=== PATIENT | male | born 2000 | race Caucasian/White ===

== ENCOUNTER 2021-12-31 17:47 | Emergency (ER) | payer OTHER, SELFPAY ==
[2021-12-31 17:57] VITALS: BP 155/74; PULSE 100; RESP 18; TEMP 37.2; O2SAT 100
--- NOTE | 2021-12-31 18:18 | ED.MALEGU ---
HPI - Male Genitourinary General Chief complaint: Urogenital-Male Stated complaint: STD Check Time Seen by Provider: 12/31/21 17:55 Source: patient, RN notes reviewed and old records reviewed Mode of arrival: ambulatory Limitations: no limitations History of Present Illness HPI Narrative: 21 year old male presents to [facility] care with complaint of needing STD check up. Patient reports that 2 or 3 months ago he had unprotected sexual intercourse with someone and he received a call from them informing him they had tested positive for Trichomonas. Patient reports that he has not had any penis discomfort or any testicle discomfort , no discharge from penis or any pain or burning with urination. MD Complaint: possible STD exposure Related Data Allergies Allergy/AdvReac Type Severity Reaction Status Date / Time No Known Allergies Allergy Verified 12/31/21 18:21 Review of Systems Review of Systems: CONSTITUTIONAL: Denies fever, chills, or sweats. CARDIOVASCULAR: Denies chest pain, palpitations, or edema. RESPIRATORY: Denies cough or dyspnea. GASTROINTESTINAL: Denies abdominal pain, nausea, vomiting, or diarrhea. GENITOURINARY: Reports dysuria, frequency, urgency. Denies flank pain or hematuria. SKIN: Denies rash or itching. MUSCULOSKELETAL: Denies back pain or myalgia. Denies CVA tenderness NEUROLOGIC: Denies headache All systems reviewed & are unremarkable except as noted in HPI and below PMFSH Social History Social History (Updated 12/31/21 @ 19:24 by Elli Marquis NP) Smoking status: Never smoker Alcohol intake: current Alcohol use details: social Substance use type: does not use Living arrangements: with family Gender identity (if verbalized by the patient): Male Comments At time of signature, agree with nursing past medical, surgical, social and family history. There is no relevant family history pertinent to the presenting complaint Exam Narrative: GENERAL: Well-appearing, well-nourished, and in no acute distress. HEAD: Normocephalic, atraumatic. NECK: Supple.no lymphadenopathy CHEST: Clear to auscultation. No respiratory distress. HEART: Regular rate and rhythm. No murmur heard. Normal peripheral pulses. ABDOMEN: Soft, nontender, nondistended, normal active bowel sounds. No CVA tenderness, denies any pain or burning with urination or any penile drainage. EXTREMITIES: Normal range of motion. No edema. SKIN: Warm, dry, no rash. NEURO: No focal deficits. Alert and oriented x3. Course Course Emergency Course: Patient is aware of diagnosis, understands and agrees to treatment plan.? Anticipatory guidance given.? Patient agrees to follow-up as directed and is aware of reasons to seek care at the emergency department. Portions of this record may have been created with voice recognition software Level of Care: Express Care Visit Vital Signs Vital signs: Vital Signs Temperature 37.2 C 12/31/21 17:57 Pulse Rate 100 12/31/21 17:57 Respiratory Rate 18 12/31/21 17:57 Blood Pressure 155/74 H 12/31/21 17:57 Pulse Oximetry 100 12/31/21 17:57 Oxygen Delivery Room Air 12/31/21 17:57 Temperature 37.2 C 12/31/21 17:57 Pulse Rate 100 12/31/21 17:57 Respiratory Rate 18 12/31/21 17:57 Blood Pressure 155/74 H 12/31/21 17:57 Pulse Oximetry 100 12/31/21 17:57 Oxygen Delivery Room Air 12/31/21 17:57 MDM - Male Genitourinary MDM Narrative Medical decision making narrative: Will empirically treat for GC/ chlamydia/Trichomoniasis with ceftriaxone today in clinic, doxycycline and Flagyl RX sent to your pharmacy. Cultures have been sent. Abstinence and safe sex precautions were provided and the patient demonstrated understanding Differential Diagnosis Differential diagnosis: Likely urinary tract infection, urethritis and other (STD exposure, STD screening,STD treatment.) Medical Records Attestation: I reviewed the patient's medical records. Lab Data Attestation: I reviewed
[2021-12-31] MEDS: cefTRIAXone 1 GM, LIDOCAINE HCL 1% LOCAL INJ 2.1 ML IM (18:31)
== END 2021-12-31 18:46 | disposition home or self-care (01) ==
PROVIDERS: Emergency Provider Registered Nurse; PCP Family Medicine Sports Medicine
DX: Z20.2 Contact with and (suspected) exposure to infections with a predominantly sexual mode of transmission (principal)
CPT/HCPCS: 87491; 87591; 87661; 96372; 99203; G0463; J0696